=== PATIENT | female | born 1970 | race Caucasian/White ===

== ENCOUNTER 2019-01-07 18:43 | Inpatient (IN) | payer OTHER ==
[2019-01-07 22:23] VITALS: BMI 17.2
--- NOTE | 2019-01-07 23:22 | PN ---
"[facility] CIWA - CIWA Score Nausea/Vomitin-Mild Nausea/No Vomiting Muscle Tremors: 4-Moderate,w/Arms Extend Anxiety: 4-Mod. Anxious/Guarded Agitation: 4-Moderately Restless Paroxysmal Sweats: 3 (Increased facial moisture) Orientation: 0-Oriented Tacttile Disturbances: 0-None Auditory Disturbances: 0-None Visual Disturbances: 0-None Headache: 2-Mild CIWA-Ar Total Score: 18 BHS Progress Note (SOAP) Subjective: 48 yo presents w/ multiple substance use. Originally scheduled for rehab, but based on current substance use being admitted to detox. Alcohol use since age 19. Currently drinks 1 pint liq/day x 2 months. Cocaine and crack use since age 30's. Currently use is $200/day. Marijuana se since age 15. Current use 1-2x/month. Opioid use since age 28. Currently on Suboxone x 5 years. Nicotine us since age 18. Current smokes 1/2 PPD. PMHx: MS; COPD, Arthritis; MHHx: Anxiety; PTSD; Depression. Denies thoughts of harming self or others. SHx: Housing. Unemployed. Objective: Alert and oriented. See CIWA. Patient Name: Christopher Smart Date: 1970 Address: [address] [place] [address] Sex: Female Rx Written Rx Dispensed Drug Quantity Days Supply Prescriber Name 01/01/2019 01/01/2019 buprenorphine-naloxone 8-2 mg sl film 75 30 Santos Salazar MD 01/01/2019 01/01/2019 clonazepam 0.5 mg tablet 30 30 Santos Salazar MD 12/06/2018 12/07/2018 clonazepam 0.5 mg tablet 30 30 Santos Salazar MD 12/06/2018 12/07/2018 buprenorphine-naloxone 8-2 mg sl film 75 30 Santos Salazar MD 11/09/2018 11/09/2018 clonazepam 0.5 mg tablet 30 30 Santos Salazar MD 11/09/2018 11/09/2018 buprenorphine-naloxone 8-2 mg sl film 75 30 Santos Salazar MD 10/12/2018 10/12/2018 clonazepam 0.5 mg tablet 30 30 Santos Salazar MD 10/12/2018 10/12/2018 buprenorphine-naloxone 8-2 mg sl film 75 30 Santos Salazar MD 08/16/2018 08/21/2018 buprenorphine-naloxone 8-2 mg sl film 75 30 Martin, Santos Burns MD 08/16/2018 08/21/2018 clonazepam 0.5 mg tablet 30 30 Martin, Santos Burns MD 07/25/2018 07/25/2018 buprenorphine-naloxone 8-2 mg sl film 75 30 Martin, Santos Burns MD 07/25/2018 07/25/2018 clonazepam 0.5 mg tablet 30 30 Martin, Santos Burns MD 06/12/2018 06/12/2018 clonazepam 0.5 mg tablet 30 30 Martin, Santos Burns MD 06/12/2018 06/12/2018 buprenorphine-naloxone 8-2 mg sl film 75 30 Martin, Santos Burns MD 05/15/2018 05/15/2018 clonazepam 0.5 mg tablet 30 30 Martin, Santos Burns MD 05/15/2018 05/15/2018 suboxone 8 mg-2 mg sl film 75 30 Martin, Santos Burns MD 02/28/2018 02/28/2018 suboxone 8 mg-2 mg sl film 75 30 MartinSantos MD 02/28/2018 02/28/2018 clonazepam 0.5 mg tablet 30 30 Martin, Santos Burns MD 01/10/2018 01/15/2018 clonazepam 0.5 mg tablet 30 30 Martin, Santos Burns MD 01/10/2018 01/12/2018 suboxone 8 mg-2 mg sl film 75 30 MartinSantos MD Search Terms: Christopher Berry, 1970 Search Date: 01/07/2019 11:53:01 PM States Searched: [place], [place], [place], [place], [place], [place], [place], [place] The Drug Utilization Report below displays the controlled substance prescriptions, if any, that were dispensed in the indicated state(s). The information displayed on this report is compiled from requests submitted to other states' PMPs, and accurately reflects the information as returned by them. Blank sue indicate data not provided by other state. This report was requested by: Madai Ovalle | Reference #: [id number] There are no results for the search terms that you entered. Assessment: Alcohol withdrawal. Agonist therapy. Poly-substance use disorder Underweight Hx: MS 01/07/19 23:26 Plan: Admit to detox. Detox orders written. CIWA-AR Score = 18 H & P do be done in a.m."
[2019-01-07] MEDS ORDERED: MAGNESIUM HYDROX 2400MG/30ML ORAL SUSPENSION 30 ML CUP PO PRN (23:34)
[2019-01-07] MEDS ORDERED: IBUPROFEN 400 MG TABLET (FP) PO PRN (23:34)
[2019-01-07] MEDS ORDERED: ACETAMINOPHEN 325 MG TABLET (FP) PO PRN ×2 (23:34)
[2019-01-07] MEDS ORDERED: BISMUTH SUBSALICYLATE 524 MG/30 ML UD PO PRN (23:34)
[2019-01-07] MEDS ORDERED: METHOCARBAMOL 500 MG TABLET PO PRN (23:34)
[2019-01-07] MEDS ORDERED: NICOTINE POLACRILEX 2 MG GUM BUC PRN (23:34)
[2019-01-07] MEDS ORDERED: MAG HYDROX/AL HYDROX/SIMETH 30 ML UNIT-DOSE CUP PO PRN (23:34)
[2019-01-07] MEDS ORDERED: MAGNESIUM CITRATE 300 ML BOTTLE PO PRN (23:34)
[2019-01-07] MEDS ORDERED: MENTHOL/PHENOL 1 EACH UD MM PRN (23:34)
[2019-01-08] MEDS ORDERED: ALBUTEROL SULFATE IH PRN (00:06)
[2019-01-08] MEDS ORDERED: chlordiazePOXIDE HCL 25 MG CAPSULE PO ONE (00:27)
[2019-01-08] MEDS ORDERED: chlordiazePOXIDE HCL 10 MG CAPSULE PO PRN (00:27)
[2019-01-08] MEDS ORDERED: ALBUTEROL SO4 8 GM HFA INHALER IH PRN (00:34)
[2019-01-08] MEDS: chlordiazePOXIDE HCL 25 MG CAPSULE PO SCH ×3 (06:03→22:20)
[2019-01-08] MEDS ORDERED: PATIENT'S OWN MEDICATION (NON-FORMULARY) (Meloxicam 7.5 MG) PO SCH (10:00)
[2019-01-08] MEDS ORDERED: BUDESONIDE/FORMETEROL FUMARATE 80/4.5 mcg INHALER IH SCH (10:00)
[2019-01-08 10:07] LABS: ALBUMIN 3.2 g/dl (3.4-5.0); BILIRUBIN,TOTAL 0.2 mg/dL (0.2-1); BLOOD UREA NITROGEN 13.3 mg/dL (7-18); CALCIUM 8.7 mg/dL (8.5-10.1); CREATININE 0.8 mg/dL (0.55-1.3); POTASSIUM 4.4 mmol/L (3.5-5.1); TOT PROT 6.3 g/dl (6.4-8.2)
[2019-01-08] MEDS: BUPRENORPHINE/NALOXONE 8 MG/2 MG FILM PACKET SL SCH ×2 (10:14→22:20)
[2019-01-08] MEDS: NICOTINE 14 MG/24 HOURS TOPICAL PATCH TD SCH (10:14)
[2019-01-08] MEDS: PRENATAL VITAMINS W/ FOLIC ACID TABLET (FP) PO SCH (10:14)
[2019-01-08] MEDS: BUDESONIDE/FORMETEROL FUMARATE 80/4.5 mcg INHALER IH SCH ×2 (10:14→22:18)
[2019-01-08 10:18] LABS: HEMOGLOBIN 12.7 GM/dL (10.7-15.3); MCH 32.2 pg (25.7-33.7); MCHC 33.5 g/dl (32.0-36.0); MEAN PLT VOLUME 8.5 fl (7.5-11.1); PLATELET COUNT 349 K/MM3 (134-434); RBC 3.96 M/mm3 (3.60-5.2); RDW 13.8 % (11.6-15.6); WHITE BLOOD COUNT 6.4 K/mm3 (4.0-10.0)
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
[2019-01-08] MEDS: BUPRENORPHINE/NALOXONE 4 MG/1 MG FILM PACKET SL SCH (13:05)
[2019-01-08] MEDS: THIAMINE HCL 100 MG TABLET (FP) PO SCH (22:20)
[2019-01-08] MEDS: MELATONIN 5 MG TABLETS PO PRN (22:20)
[2019-01-09] MEDS: chlordiazePOXIDE 5 MG CAPSULE PO SCH ×4 (06:22→21:40)
[2019-01-09] MEDS: PRENATAL VITAMINS W/ FOLIC ACID TABLET (FP) PO SCH (10:54)
[2019-01-09] MEDS: BUDESONIDE/FORMETEROL FUMARATE 80/4.5 mcg INHALER IH SCH ×2 (10:55→21:40)
[2019-01-09] MEDS: NICOTINE 14 MG/24 HOURS TOPICAL PATCH TD SCH (10:55)
[2019-01-09] MEDS: BUPRENORPHINE/NALOXONE 8 MG/2 MG FILM PACKET SL SCH ×2 (10:55→21:40)
[2019-01-09] MEDS: BUPRENORPHINE/NALOXONE 4 MG/1 MG FILM PACKET SL SCH (13:08)
--- NOTE | 2019-01-09 14:36 | PN ---
[facility] CIWA - CIWA Score Nausea/Vomitin-No Nausea/No Vomiting Muscle Tremors: 3 Anxiety: 3 Agitation: 3 Paroxysmal Sweats: 2 Orientation: 0-Oriented Tacttile Disturbances: 0-None Auditory Disturbances: 0-None Visual Disturbances: 0-None Headache: 0-None Present CIWA-Ar Total Score: 11 S Progress Note (SOAP) Subjective: sweats shakes interrupted sleep body aches Objective: 01/09/19 14:35 Vital Signs Temperature 97.9 F 01/09/19 13:02 Pulse Rate 67 01/09/19 13:02 Respiratory Rate 16 01/09/19 13:02 Blood Pressure 100/63 01/09/19 13:02 O2 Sat by Pulse Oximetry (%) Laboratory Tests 01/08/19 01/08/19 01/08/19 08:00 08:00 08:00 WBC 6.4 RBC 3.96 Hgb 12.7 Hct 38.0 MCV 96.0 MCH 32.2 MCHC 33.5 RDW 13.8 Plt Count 349 MPV 8.5 Sodium 143 Potassium 4.4 Chloride 109 H Carbon Dioxide 29 Anion Gap 5 L BUN 13.3 Creatinine 0.8 Est GFR (CKD-EPI)AfAm 101.04 Est GFR (CKD-EPI)NonAf 87.18 Random Glucose 86 Calcium 8.7 Total Bilirubin 0.2 AST 13 L ALT 20 Alkaline Phosphatase 96 Total Protein 6.3 L Albumin 3.2 L RPR Titer Nonreactive labs noted aaox3 ambulating no acute distress Assessment: 01/09/19 14:36 withdrawal Plan: continue detox increase fluids
[2019-01-09] MEDS: THIAMINE HCL 100 MG TABLET (FP) PO SCH (21:40)
[2019-01-09] MEDS: MELATONIN 5 MG TABLETS PO PRN (21:41)
[2019-01-10] MEDS ORDERED: chlordiazePOXIDE HCL 10 MG CAPSULE PO PRN
[2019-01-10] MEDS: chlordiazePOXIDE HCL 10 MG CAPSULE PO SCH ×3 (07:06→22:37)
[2019-01-10] MEDS: PRENATAL VITAMINS W/ FOLIC ACID TABLET (FP) PO SCH (10:32)
[2019-01-10] MEDS: BUPRENORPHINE/NALOXONE 8 MG/2 MG FILM PACKET SL SCH ×2 (10:32→22:38)
[2019-01-10] MEDS: BUDESONIDE/FORMETEROL FUMARATE 80/4.5 mcg INHALER IH SCH ×2 (10:32→22:38)
[2019-01-10] MEDS: NICOTINE 14 MG/24 HOURS TOPICAL PATCH TD SCH (10:32)
--- NOTE | 2019-01-10 13:50 | PN ---
S CIWA - CIWA Score Nausea/Vomitin-No Nausea/No Vomiting Muscle Tremors: 2 Anxiety: 2 Agitation: 2 Paroxysmal Sweats: 2 Orientation: 0-Oriented Tacttile Disturbances: 0-None Auditory Disturbances: 0-None Visual Disturbances: 0-None Headache: 0-None Present CIWA-Ar Total Score: 8 BHS Progress Note (SOAP) Subjective: sweats interrupted sleep body aches Objective: 01/10/19 13:50 Vital Signs Temperature 97.7 F 01/10/19 06:39 Pulse Rate 64 01/10/19 06:39 Respiratory Rate 16 01/10/19 06:39 Blood Pressure 109/72 01/10/19 06:39 O2 Sat by Pulse Oximetry (%) aaox3 ambulating no acute distress Assessment: 01/10/19 14:02 mild withdrawals Plan: continue detox increase fluids d/c in am
[2019-01-10] MEDS: BUPRENORPHINE/NALOXONE 4 MG/1 MG FILM PACKET SL SCH (14:47)
[2019-01-10] MEDS: MELATONIN 5 MG TABLETS PO PRN (22:38)
[2019-01-10] MEDS: THIAMINE HCL 100 MG TABLET (FP) PO SCH (22:38)
[2019-01-11] MEDS ORDERED: chlordiazePOXIDE HCL 10 MG CAPSULE PO ONE (05:00)
[2019-01-11 09:44] VITALS: BP 114/75; PULSE 77; TEMP 97.7
--- NOTE | 2019-01-11 09:48 | DS ---
[facility] Detox Discharge Summary Admission Date: 01/08/19 Discharge Date: 01/11/19 - History Present History: Alcohol Dependence, Cocaine Dependence - Physical Exam Results Vital Signs: Vital Signs Temperature 97.7 F 01/11/19 09:44 Pulse Rate 77 01/11/19 09:44 Respiratory Rate 18 01/11/19 09:44 Blood Pressure 114/75 01/11/19 09:44 O2 Sat by Pulse Oximetry (%) Pertinent Admission Physical Exam Findings: pt arrived in withdrawals Vital Signs Temperature 97.7 F 01/11/19 09:44 Pulse Rate 77 01/11/19 09:44 Respiratory Rate 18 01/11/19 09:44 Blood Pressure 114/75 01/11/19 09:44 O2 Sat by Pulse Oximetry (%) Laboratory Tests 01/07/19 01/08/19 01/08/19 23:05 08:00 08:00 WBC 6.4 RBC 3.96 Hgb 12.7 Hct 38.0 MCV 96.0 MCH 32.2 MCHC 33.5 RDW 13.8 Plt Count 349 MPV 8.5 Sodium 143 Potassium 4.4 Chloride 109 H Carbon Dioxide 29 Anion Gap 5 L BUN 13.3 Creatinine 0.8 Est GFR (CKD-EPI)AfAm 101.04 Est GFR (CKD-EPI)NonAf 87.18 Random Glucose 86 Calcium 8.7 Total Bilirubin 0.2 AST 13 L ALT 20 Alkaline Phosphatase 96 Total Protein 6.3 L Albumin 3.2 L POC Urine HCG, Qual Negative RPR Titer 01/08/19 08:00 WBC RBC Hgb Hct MCV MCH MCHC RDW Plt Count MPV Sodium Potassium Chloride Carbon Dioxide Anion Gap BUN Creatinine Est GFR (CKD-EPI)AfAm Est GFR (CKD-EPI)NonAf Random Glucose Calcium Total Bilirubin AST ALT Alkaline Phosphatase Total Protein Albumin POC Urine HCG, Qual RPR Titer Nonreactive pt is aaox3 ambulating no acute distress feeling better no s/s of withdrawals - Treatment Hospital Course: Detox Protocol Followed, Detoxed Safely, Responded well, Discharged Condition Good, Rehab Referral Accepted Patient has Accepted a Rehab Referral to: pt declined rehab; referral provided - Medication Discharge Medications: Ambulatory Orders Albuterol Sulfate Inhaler - 90 mcg IH DAILY PRN 01/07/19 Budesonide/Formeterol Fumarate [SYMBICORT 80/4.5mcg -] 2 puff IH BID 01/07/19 Buprenorp-Nalox 8-2 mg Sl Film 8 mg SL BID 01/07/19 Meloxicam 7.5 mg PO DAILY 01/07/19 Seroquel 100 mg PO BID 01/07/19 Trazodone HCl 50 mg PO TID 01/07/19 - Diagnosis (1) Alcohol dependence with withdrawal, uncomplicated Current Visit: Yes Status: Chronic (2) COPD (chronic obstructive pulmonary disease) Current Visit: Yes Status: Chronic Qualifiers: Chronic bronchitis type: unspecified (3) Nicotine dependence Current Visit: Yes Status: Chronic Qualifiers: Nicotine product type: cigarettes Substance use status: uncomplicated Qualified Code(s): F17.210 - Nicotine dependence, cigarettes, uncomplicated - AMA Did Patient Leave Against Medical Advice: No
[2019-01-11 10:15] LABS: EPI CELLS 2.7 /HPF (0-5/HPF); HYALINE CASTS 46 /lpf (0-8); PH,URINE 5.5 (5.0-8.0); URINE BACTERIA 2241.8 /hpf (NEGATIVE); URINE BILIRUBIN NEGATIVE (NEGATIVE); URINE COLOR YELLOW; URINE GLUCOSE (UA) NEGATIVE (NEGATIVE); URINE KETONE NEGATIVE (NEGATIVE); URINE LEUK ESTERASE 3+ (NEGATIVE); URINE NITRITE POSITIVE (NEGATIVE); URINE PROTEIN NEGATIVE (NEGATIVE); URINE RBC 32 /hpf (0-4); URINE UROBILINOGEN 0.2 mg/dL (0.2-1.0); URINE WBC 106 /hpf (0-5)
[2019-01-11 10:24] LABS: URINE APPEARANCE CLOUDY
[2019-01-11] MEDS: NICOTINE 14 MG/24 HOURS TOPICAL PATCH TD SCH (11:03)
[2019-01-11] MEDS: BUDESONIDE/FORMETEROL FUMARATE 80/4.5 mcg INHALER IH SCH (11:03)
[2019-01-11] MEDS: BUPRENORPHINE/NALOXONE 8 MG/2 MG FILM PACKET SL SCH (11:05)
[2019-01-11] MEDS: PRENATAL VITAMINS W/ FOLIC ACID TABLET (FP) PO SCH (11:07)
== END 2019-01-11 12:12 | disposition home or self-care (01) | DRG 774 ==
LOC: YASAS 18:43 → Y6N 01-08 00:01
PROVIDERS: ADMIT Allergy & Immunology; ATTEND Allergy & Immunology
PROC: HZ2ZZZZ Detoxification Services for Substance Abuse Treatment (ICD-10-PCS; principal; 2019-01-08)
DX: F10.230 Alcohol dependence with withdrawal, uncomplicated (principal); F14.20 Cocaine dependence, uncomplicated; F17.210 Nicotine dependence, cigarettes, uncomplicated; F19.282 Other psychoactive substance dependence with psychoactive substance-induced sleep disorder; F19.24 Other psychoactive substance dependence with psychoactive substance-induced mood disorder; F31.9 Bipolar disorder, unspecified; F43.10 Post-traumatic stress disorder, unspecified; J44.9 Chronic obstructive pulmonary disease, unspecified; M12.9 Arthropathy, unspecified; G35 Multiple sclerosis; Z86.73 Personal history of transient ischemic attack (TIA), and cerebral infarction without residual deficits
CPT/HCPCS: 36415; 80053; 81003; 81025; 85027; 86593